=== PATIENT | female | born 1985 | race Caucasian/White ===

== ENCOUNTER 2019-01-19 07:56 | Emergency (ER) | payer OTHER ==
[~2019-01-19] VITALS: Ht 154.9 cm; Wt 70.3 kg
[2019-01-19 07:59] VITALS: BP 120/89; Ht 154.9 cm; Wt 70.3 kg
== END 2019-01-19 09:03 | disposition home or self-care (01) ==
LOC: ED 07:56
DX: L03.311 Cellulitis of abdominal wall (principal)
CPT/HCPCS: J0696; J1885; J3010

== ENCOUNTER 2019-02-11 21:34 | Emergency (ER) | payer OTHER ==
[~2019-02-11] VITALS: Ht 154.9 cm; Wt 70.3 kg
[2019-02-11 21:42] VITALS: Ht 154.9 cm; Wt 70.3 kg
[2019-02-12 01:01] LABS: BASOPHIL % 0.5 % (0-2); PLATELET COUNT 374 x10^3mcL (130-400); RED CELL DISTRIBUTION WIDTH 13.5 % (11.5-14.5)
[2019-02-12 01:02] LABS: UA SPECIFIC GRAVITY 1.025 (1.005-1.035); microscopic required? YES; urine erythrocyte 3+ (NEGATIVE)
[2019-02-12 01:17] LABS: CALCIUM 8.7 mg/dL (8.5-10.1); CARBON DIOXIDE 32.3 mmol/L (21-32); CHLORIDE SERUM 105 mmol/L (98-107); CREATININE SERUM 0.7 mg/dL (0.6-1.0); GFR1 > 60 mL/min; GLUCOSE SERUM 101 mg/dL (74-106); POTASSIUM SERUM 4.4 mmol/L (3.5-5.1); SODIUM SERUM 142 mmol/L (136-145)
[2019-02-12 01:21] LABS: ALBUMIN 3.9 g/dL (3.4-5.0); ALKALINE PHOSPHATASE 67 U/L (46-116); ALT/SGPT 23 U/L (14-59); AST/SGOT 12 U/L (15-37); BILIRUBIN TOTAL 0.3 mg/dL (0.20-1.00); TOTAL PROTEIN, SERUM 7.4 g/dL (6.4-8.2)
[2019-02-12 01:56] VITALS: BP 122/74
== END 2019-02-12 01:56 | disposition home or self-care (01) ==
LOC: ED 21:34
PROVIDERS: Emergency Medicine
DX: N92.0 Excessive and frequent menstruation with regular cycle (principal); N39.0 Urinary tract infection, site not specified
CPT/HCPCS: 36415

== ENCOUNTER 2019-05-02 00:14 | Emergency (ER) | payer OTHER ==
[~2019-05-02] VITALS: Ht 154.9 cm; Wt 72.1 kg
[2019-05-02 00:23] VITALS: Ht 154.9 cm; Wt 72.1 kg
[2019-05-02 02:49] VITALS: BP 128/60
== END 2019-05-02 02:49 | disposition home or self-care (01) ==
LOC: ED 00:14
DX: L03.115 Cellulitis of right lower limb (principal)